=== PATIENT | male | born 1995 | race Caucasian/White ===

== ENCOUNTER 2018-01-08 07:33 | Emergency (ER) | payer SELFPAY ==
[2018-01-08] MEDS: IBUPROFEN 600 MG TAB PO (07:49)
[2018-01-08] MEDS: DIPHTH/TET/ACEL PERTUSS (ADULT) 0.5 ML VIAL IM* (07:50)
[2018-01-08] MEDS: AMOXICILLIN/CLAV 875 MG TAB PO (07:50)
[2018-01-08] MEDS: HYDROCODONE/APAP (5/325) TAB PO (07:50)
== END 2018-01-08 09:18 | disposition home or self-care (01) ==
LOC: FTE 07:33
DX: S61.256A Open bite of right little finger without damage to nail, initial encounter (principal); W50.3XXA Accidental bite by another person, initial encounter; Y92.322 Soccer field as the place of occurrence of the external cause; Z23 Encounter for immunization
CPT/HCPCS: 73130; 73130-RT; 90471; 90715; 99284-25

== ENCOUNTER 2018-07-16 09:38 | Emergency (ER) | payer SELFPAY ==
[2018-07-16] MEDS: ACETAMINOPHEN 325 MG TAB PO (10:29)
[2018-07-16] MEDS: SOD CHLORIDE 0.9% 1,000 ML IV (10:29)
[2018-07-16] MEDS: ONDANSETRON 4 MG INJ IV (10:29)
[2018-07-16 10:54] LABS: ADD MAN DIFF? NO
[2018-07-16 10:58] LABS: BASOPHIL # 0.1 10^3/ul (0.0-0.1); BASOPHILS % 0.4 % (0.0-2.0); EOSINOPHILS % 0.2 % (0.0-7.0); HEMOGLOBIN 14.9 g/dl (14.0-18.0); LYMPHOCYTES # 1.8 10^3/ul (0.8-2.9); LYMPHOCYTES % 11.1 % (15.0-51.0); MEAN CORPUSCULAR HEMOGLOBIN 28.7 pg (29.0-33.0); MEAN CORPUSCULAR HGB CONC 33.9 g/dl (32.0-37.0); MEAN CORPUSCULAR VOLUME 84.8 fl (82.0-101.0); MEAN PLATELET VOLUME 10.4 fl (7.4-10.4); MONOCYTES % 6.1 % (0.0-11.0); NEUTROPHIL # 13.3 10^3/ul (1.6-7.5); NEUTROPHILS % 81.8 % (39.0-77.0); PLATELET COUNT 236 10^3/UL (140-415); RED BLOOD COUNT 5.19 10^6/ul (4.70-6.10); RED CELL DISTRIBUTION WIDTH 12.9 % (11.5-14.5)
[2018-07-16 10:58] LABS: WHITE BLOOD COUNT 16.3 10^3/ul (4.8-10.8)
[2018-07-16 11:14] LABS: ALANINE AMINOTRANSFERASE 35 IU/L (13-69); ALBUMIN 4.8 g/dl (3.3-4.9); ALBUMIN/GLOBULIN RATIO 1.37; ALKALINE PHOSPHATASE 81 IU/L (42-121); ANION GAP 13 (8-16); ASPARTATE AMINO TRANSFERASE 36 IU/L (15-46); BILIRUBIN,INDIRECT 0.6 mg/dl (0-1.1); BILIRUBIN,TOTAL 0.6 mg/dl (0.2-1.3); BLOOD UREA NITROGEN 6 mg/dl (7-20); CALCIUM 9.4 mg/dl (8.4-10.2); CARBON DIOXIDE 28 mmol/L (21-31); CHLORIDE 105 mmol/L (97-110); CREATININE 0.82 mg/dl (0.61-1.24); GLUCOSE 101 mg/dl (70-220); LIPASE 36 U/L (23-300); SODIUM 142 mmol/L (135-144); TOTAL PROTEIN 8.3 g/dl (6.1-8.1)
== END 2018-07-16 12:31 | disposition home or self-care (01) ==
LOC: FTE 09:38
DX: K52.9 Noninfective gastroenteritis and colitis, unspecified (principal)
CPT/HCPCS: 80053; 83690; 85025; 96361; 96374; 99284-25

== ENCOUNTER 2018-07-19 20:32 | Emergency (ER) | payer SELFPAY | END 2018-07-19 22:40 | disposition home or self-care (01) | LOC: FTE 20:32 | DX: H10.33 Unspecified acute conjunctivitis, bilateral (principal) | CPT/HCPCS: 36415; 96372; 99285-25 ==